=== PATIENT | male | born 1970 | race Caucasian/White ===

== ENCOUNTER 2016-10-12 11:36 | Day surgery (SDC) | payer BC, OTHER ==
[~2016-10-12 11:36] MED LIST: Buffered Lidocaine 0.9% SYRIN* 5 ML/SYR SYRINGE INTRADERM ONE; Buffered Lidocaine 0.9% SYRIN* 5 ML/SYR SYRINGE ONE; Famotidine IV* 10 MG/ML 2 ML (20 mg) IV ONE; Famotidine IV* 10 MG/ML 2 ML (20 mg) ONE; ceFAZolin 2 GM PREMIX(*) 2 GM/50 ML BAG IVPB ONE
[2016-10-12] MEDS ORDERED: Lidocaine 1% INJ* 10 MG/ML 30 ML SDV ONE (12:07)
[2016-10-12] MEDS ORDERED: Bupivacaine 0.5% W/EPI SDV* 10 ML VIAL INJ ONE (12:07)
[2016-10-12] MEDS ORDERED: KETAMINE HCL* 50 MG/ML 10 ML VIAL ONE (12:14)
[2016-10-12] MEDS ORDERED: Ondansetron INJ* 2 MG/ML VIAL ONE (12:14)
[2016-10-12] MEDS ORDERED: Midazolam* 1 MG/ML 5 ML VIAL (5 MG) ONE (12:14)
[2016-10-12] MEDS ORDERED: Ketorolac INJ* 30 MG/ML 1 ML VIAL ONE (12:14)
[2016-10-12] MEDS ORDERED: fentaNYL* 50 MCG/ML 2 ML VIAL (100 MCG VIAL) ONE (12:14)
[2016-10-12] MEDS ORDERED: Propofol* 10 MG/ML 20 ML BTL IV PUSH ONE (12:14)
[2016-10-12] MEDS ORDERED: Lidocaine 2% PF * 5 ML VIAL ONE (12:14)
[2016-10-12] MEDS ORDERED: Dexamethasone IV* 4 MG/ML 1 ML (4 MG) ONE (12:14)
[2016-10-12] MEDS ORDERED: Midazolam* 1 MG/ML 2 ML VIAL (2 MG) ONE (12:43)
[2016-10-12] MEDS ORDERED: oxyCODONE/Acetamin 5/325 MG* TAB PO PRN ×2 (13:26→13:27)
[2016-10-12] MEDS ORDERED: fentaNYL* 50 MCG/ML 2 ML VIAL (100 MCG VIAL) IV PRN (13:26)
[2016-10-12] MEDS ORDERED: Ondansetron INJ* 2 MG/ML VIAL IV PRN (13:26)
[2016-10-12 14:17] VITALS: BP 107/72
--- NOTE | 2016-11-01 07:06 | OP ---
DATE OF OPERATION: 10/12/16 - [facility] DATE OF : 72 SURGEON: Sánchez Bray MD. [employer] SALES REPRESENTATIVE: SAGE Bee. ANESTHESIOLOGIST: Ulises Chahal MD. ANESTHESIA: Local, MAC. PRE-OP DIAGNOSIS: Umbilical hernia. POST-OP DIAGNOSIS: Umbilical hernia. OPERATIVE PROCEDURE: Open repair of umbilical hernia. ESTIMATED BLOOD LOSS: Minimal. IV FLUIDS: LR 800 mL. SPECIMEN: None. DRAINS: None. COMPLICATIONS: None. COUNTS: Instrument, needle, and sponge counts were correct. DESCRIPTION OF PROCEDURE: The patient was brought to the operating room and placed on the table supine. Sequential compression devices were placed on both lower extremities. He was administered intravenous sedation. His abdomen was prepped and draped in the usual sterile fashion and he received appropriate antibiotics. A time-out was performed. Local anesthetic was infiltrated as a field block in the umbilical region and then a curvilinear infraumbilical incision was created, and the umbilical stalk was dissected off of the anterior abdominal wall. Umbilical hernia defect was identified. It was 1 cm in size and closed with 0 Ti-Cron suture in interrupted [id number] fashion. Hemostasis was assured. The umbilical stalk was reapproximated to the anterior fascia with 3-0 Polysorb. The skin was closed with 4-0 Monocryl in a subcuticular fashion. Steri-Strips were applied. The patient tolerated the procedure well and was extubated, then transferred to the recovery room in a stable condition. [id number] #: [id number] MTDD
== END 2016-10-12 14:37 | disposition home or self-care (01) ==
LOC: OR 11:36
PROVIDERS: ATTEND Surgery
DX: K42.9 Umbilical hernia without obstruction or gangrene (principal); Z87.891 Personal history of nicotine dependence; Z88.1 Allergy status to other antibiotic agents; I10 Essential (primary) hypertension; G40.909 Epilepsy, unspecified, not intractable, without status epilepticus; F32.9 Major depressive disorder, single episode, unspecified; M54.5 Low back pain
CPT/HCPCS: J0690; J1100; J1885; J2001; J2250; J2405; J2704; J3010

== ENCOUNTER 2017-01-30 13:52 | Emergency (ER) | payer BC ==
[2017-01-30] MEDS ORDERED: Famotidine IV* 10 MG/ML 2 ML (20 mg) IV SLOW PU ONE (14:24)
[2017-01-30] MEDS ORDERED: diPHENhydraMINE IV* 50 MG/ML 1 ml VIAL (BENADRYL) IV ONE (14:24)
[2017-01-30] MEDS ORDERED: methylPREDNISolone 125 MG* 2 ML VIAL IV ONE (14:24)
[2017-01-30] MEDS ORDERED: NS 0.9% 1000 ML* 2,000 ML IV ONE (14:25)
--- NOTE | 2017-01-30 16:24 | ED ---
Allergic Reaction/Systemic - HPI Summary HPI Summary: 46M presents with allergic reaction today. 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 He states that he was stung by bee on neck today so he took his epipen as did not want to have hypotension. He denies any SOB, chest pain, n/v, difficulty swallowing. He did not take anything else. He was on allergy shots for 5 years. He has not gotten stung since 2000. He feels asymptomatic now. He has history of high blood pressure. - History of Current Complaint Chief Complaint: EDAllergicReaction Time Seen by Provider: 01/30/17 14:26 Pain Intensity: 5 - Allergies/Home Medications Allergies/Adverse Reactions: Allergies Allergy/AdvReac Type Severity Reaction Status Date / Time Amoxicillin Allergy Severe Hives Verified 10/12/16 12:10 Bee Venom Allergy Severe Anaphylatic Verified 10/12/16 12:10 Shock SEASONAL Allergy Intermediate Eyes Uncoded 10/12/16 12:10 Itchy/Swollen/Red/Watery PMH/Surg Hx/FS Hx/Imm Hx Endocrine/Hematology History: Denies: Hx Diabetes Cardiovascular History: Reports: Hx Hypertension - ON MEDS PT STATES CONTROLLED Denies: Hx Pacemaker/ICD Respiratory History: Reports: Hx Asthma - HAS INHALER AND NEB, Other Respiratory Problems/Disorders - PNA GI History: Reports: Hx Gastroesophageal Reflux Disease, Hx Irritable Bowel - DIARRHEA, Hx Ulcer - PAST 5 YEARS AGO Sensory History: Reports: Hx Contacts or Glasses - CONTACTS PT WILL WEAR GLASSES ON DOS Denies: Hx Hearing Aid Opthamlomology History: Reports: Hx Contacts or Glasses - CONTACTS PT WILL WEAR GLASSES ON DOS Neurological History: Reports: Hx Seizures - ON TEGRETOL PT STATES CONTROLLED 10 YEARS WITHOUT ONE Psychiatric History: Denies: Hx Panic Disorder - Cancer History Hx Chemotherapy: No - Surgical History Surgery Procedure, Year, and Place: WISDOM TEETH REMOVED 1994 Hx Anesthesia Reactions: No Infectious Disease History: No Infectious Disease History: Denies: Traveled Outside the [place] in Last 30 Days - Family History Known Family History: Positive: Hypertension - Social History Alcohol Use: Rare Alcohol Amount: 1 MONTH Substance Use Type: Reports: None Substance Use Comment - Amount & Last Used: 5 HOUR ENERGY Smoking Status (MU): Former Smoker Review of Systems Negative: Fever Negative: Chest Pain Negative: Shortness Of Breath Positive: Other - bee sting neck All Other Systems Reviewed And Are Negative: Yes Physical Exam Triage Information Reviewed: Yes Vital Signs On Initial Exam: Initial Vitals Temp Pulse Resp BP Pulse Ox 98.9 F 88 16 136/90 97 01/30/17 14:04 01/30/17 14:04 01/30/17 14:04 01/30/17 14:04 01/30/17 14:04 Vital Signs Reviewed: Yes Appearance: Positive: Well-Appearing Skin: Positive: Warm, Dry, Other - 1cm area of redness to right side of neck Head/Face: Positive: Normal Head/Face Inspection Eyes: Positive: Normal, EOMI, SHAHNAZ, Conjunctiva Clear ENT: Positive: Normal ENT inspection, Pharynx normal, TMs normal Respiratory/Lung Sounds: Positive: Clear to Auscultation, Breath Sounds Present Cardiovascular: Positive: Normal, RRR Abdomen Description: Positive: Nontender, Soft Bowel Sounds: Positive: Present - Andres Coma Scale Coma Scale Total: 15 Diagnostics - Vital Signs Vital Signs Temp Pulse Resp BP Pulse Ox 01/30/17 14:07 90 97 01/30/17 14:05 136/90 01/30/17 14:04 98.9 F 88 16 136/90 97 - Laboratory Lab Statement: Any lab studies that have been ordered have been reviewed, and results considered in the medical decision making process. Re-Evaluation - Re-Evaluation First Eval Re-Evaluation Time: 15:00 Change: Improved Comment: no symptoms at this time, blood pressure mantained. Second Eval Re-Evaluation Time: 16:22 Change: Unchanged Comment: blood pressure mantained. no sx Allergic Reaction Course/Dx - Course Course Of Treatment: 46M presents with allergic reaction today. 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 He states that he was stung by bee on neck today so he took his epipen. He denies any SOB, chest pain, n/v, difficulty swallowing. He did not take anything else. He was on allergy shots for 5 years. He has not gotten stung since 2000. He feels asymptomatic now. on exam lungs CTA. throat normal. bp 130/80. gave bednaryl, steriod and pepcid and no symptoms for 3 hours after epipen self administered. will d/c with prednisone. patient understands and agrees with plan. - Diagnoses Differential Diagnosis/HQI/PQRI: Positive: Anaphylaxis, Bronchospasm, Local Allergic Reaction Provider Diagnoses: Bee sting, Allergic reaction Discharge - Discharge Plan Condition: Good Disposition: HOME Prescriptions: predniSONE TAB* [Deltasone TAB*] 40 mg PO DAILY #8 tab Patient Education Materials: Anaphylaxis (ED) Referrals: [facility] [Outside] Additional Instructions: Take Benadryl every 6 hours for 24 hours Take steroid once a day for 4 days starting tomorrow Return to ED if shortness of breath, chest pain, or if develop any new or worsening symptoms
[2017-01-30 16:45] VITALS: BP 118/84
== END 2017-01-30 16:45 | disposition home or self-care (01) ==
LOC: ED 13:52
DX: T63.441A Toxic effect of venom of bees, accidental (unintentional), initial encounter (principal); T78.49XA Other allergy, initial encounter; Z86.79 Personal history of other diseases of the circulatory system; X58.XXXA Exposure to other specified factors, initial encounter; Y92.9 Unspecified place or not applicable; Z87.891 Personal history of nicotine dependence
CPT/HCPCS: 96374; 96375; 99283; J1200; J2930